=== PATIENT | female | born 1990 | race Two or more races ===

== ENCOUNTER 2018-06-13 18:08 | Emergency (ER) | END 2018-06-13 20:01 | disposition home or self-care (01) ==

== ENCOUNTER 2018-11-09 15:48 | Emergency (ER) | payer SELFPAY ==
[~2018-11-09 15:48] MED LIST: AZIT250T PO; CYCL10TA7 PO; FIORICET PO; HYDR-3498 PO; METO10TA92 PO; NAPR-985 PO
== END 2018-11-09 18:26 | disposition left against medical advice (07) ==
LOC: E/R 15:48
DX: Z53.21 Procedure and treatment not carried out due to patient leaving prior to being seen by health care provider (principal)

== ENCOUNTER 2019-03-23 10:40 | Emergency (ER) | payer OTHER ==
[~2019-03-23] VITALS: Ht 167.6 cm; Wt 67.0 kg
[2019-03-23 10:43] VITALS: BP 123/60; PULSE 83; RESP 19; Ht 167.6 cm; Wt 67.0 kg
[2019-03-23] MEDS ORDERED: AMOX500C2 PO (12:11)
[2019-03-23] MEDS ORDERED: IBUP-1542 PO (12:11)
--- NOTE | 2019-03-23 12:17 | ERD ---
ER Documentation Chief Complaint Chief Complaint Headache x 2 days worse today HPI Patient is a 29-year-old female, no past medical history, presents the ER for concerns of a frontal headache x2 days, worse today. Patient states she also has nasal congestion. She reports yellow accretions. She states she been erika ing Zyrtec for about a week now to helping with her symptoms. Patient states she has tenderness to her sinuses. Patient has no photophobia, phonophobia, nausea, vomiting, blurry vision, fevers, chills. Patient denies any recent travel. Patient has no neck pain or neck stiffness. Patient states she tried to take aspirin for pain however did not help. ROS All systems reviewed and are negative except as per history of present illness. Medications Home Meds Active Scripts Amoxicillin* (Amoxicillin*) 500 Mg Cap, 500 MG PO BID for 7 Days, CAP Prov:DEON MOULTON PA-C 03/23/19 Ibuprofen* (Motrin*) 600 Mg Tab, 600 MG PO Q6, #30 TAB Prov:DEON MOULTON PA-C 03/23/19 Metoclopramide* (Reglan*) 10 Mg Tablet, 10 MG PO Q12 PRN for HEADACHE, #10 TAB Prov:LIZBETH PRIETO MD 06/13/18 Acetamin/Butalbital/Caffeine* (Fioricet*) [id number] Tab, 1 TAB PO Q6H PRN for PAIN, #12 TAB Prov:LIZBETH PRIETO MD 06/13/18 Azithromycin* (Zithromax*) 250 Mg Tablet, 250 MG PO .NAFISA DIRECTED, #6 TAB TAKE 500 MG (2 TABS) THE FIRST DAY THEN 250 MG (1 TAB) DAYS 2-5 Prov:LIZBETH PRIETO MD 06/13/18 Cyclobenzaprine Hcl* (Cyclobenzaprine Hcl*) 10 Mg Tablet, 10 MG PO QHS, #20 TAB Prov:BOLA GENAO PA-C 08/04/16 Naproxen* (Naprosyn*) 500 Mg Tablet, 500 MG PO BID PRN for PAIN AND/OR INFLAMMATION, #30 TAB Prov:BOLA GENAO PA-C 08/04/16 Hydrocodone Bit-Acetaminophen* ([place]*) 5-325 Mg Tab, 1 TAB PO Q6 PRN for PAIN, #20 TAB Prov:NATALIIA UNDERWOOD 11/02/15 Allergies Allergies: Coded Allergies: No Known Allergy (Unverified , 06/13/18) PMhx/Soc History of Surgery: Yes (cholecystectomy) Anesthesia Reaction: No Hx Neurological Disorder: No Hx Respiratory Disorders: Yes (asthma) Hx Cardiac Disorders: No Hx Psychiatric Problems: No Hx Miscellaneous Medical Probl: No Hx Alcohol Use: No Hx Substance Use: No Hx Tobacco Use: No FmHx Family History: No diabetes Physical Exam Vitals Vital Signs Date Temp Pulse Resp B/P (MAP) Pulse Ox O2 O2 Flow FiO2 Time Delivery Rate 03/23/19 98.8 83 19 123/60 98 10:43 (81) Physical Exam GENERAL: Well-developed, well-nourished female. Appears in no acute distress. Speaking in full sentences. HEAD: Normocephalic, atraumatic. EYES: Pupils are equally reactive bilaterally. EOMs grossly intact. No conjunctival erythema. ENT: Bilateral frontal and maxillary sinuses are tender to palpation. Erythema noted to the turbinates. Moist mucous membranes. No uvula deviation. No kissing tonsils. NECK: Supple. No meningismus. Normal range of motion of the neck. LUNG: Clear to auscultation bilaterally. No rhonchi, wheezing, rales or coarse breath sounds. HEART: Regular rate and rhythm. No murmurs, rubs or gallops. EXTREMITIES: Equal pulses bilaterally. No peripheral clubbing, cyanosis or edema. No unilateral leg swelling. NEUROLOGIC: Alert and oriented x3, cooperative. Mood and affect appropriate to situation. Cranial nerves II through XII are grossly intact. Normal speech. Motor exam: 5/5 strength in upper and lower extremities. Sensory exam: Sensation intact to light touch on all four extremities. Cerebellar function exam: Rapid alternating movements intact. No dysmetria on [id number] and [id number]-[id number]-[id number] test. Steady gait. No pronator drift. SKIN: Normal color. Warm and dry. No rashes or lesions. Procedures/MDM MEDICAL DECISION MAKING: This is a 29-year-old female who presents the ER for concerns of a frontal headache with nasal congestion. Vital signs were reviewed. Patient was afebrile. Patient is not hypoxic. Patient denied any fevers, neck stiffness, jaw claudication, visual changes or LOC. Full neurological exam was normal. At this time the patient presentation is consistent with sinusitis. Low suspicion for deep space infection, abscess, vasculitis, intracranial hemorrhage, meningitis, encephalitis, CO poisoning, temporal arteritis, benign intracranial hypertension, intracranial mass, glaucoma, preeclampsia, migraine headache, cluster headache. Patient was nontoxic, [id number] prior to discharge. PRESCRIPTIONS: Ibuprofen, amoxicillin DISCHARGE: At this time, patient is stable for discharge and outpatient management. I have encouraged the patient to hydrate well. I have instructed the patient to follow- up with his/her primary care physician in 1-2 days. If symptoms persist, patient may need to see a specialist for further examinations and testing. I have instructed the patient to promptly return to the ER at any time for any new or worsening symptoms including increased increased pain, fever, nausea, vomiting, numbness, neck stiffness, visual changes, weakness or LOC. The patient and/or family expressed understanding of and agreement with this plan. All questions were answered. Home care instructions were provided. Disclaimer: Inadvertent spelling and grammatical errors are likely due to EHR/dictation software use and do not reflect on the overall quality of patient care. Also, please note that the electronic time recorded on this note does not necessarily reflect the actual time of the patient encounter. Departure Diagnosis: Primary Impression: Sinus headache Condition: Fair Patient Instructions: Sinus Headaches Referrals: [facility] YOU HAVE RECEIVED A MEDICAL SCREENING EXAM AND THE RESULTS INDICATE THAT YOU DO NOT HAVE A CONDITION THAT REQUIRES URGENT TREATMENT IN THE EMERGENCY DEPARTMENT. FURTHER EVALUATION AND TREATMENT OF YOUR CONDITION CAN WAIT UNTIL YOU ARE SEEN IN YOUR DOCTORS OFFICE WITHIN THE NEXT 1-2 DAYS. IT IS YOUR RESPONSIBILITY TO MAKE AN APPOINTMENT FOR FOLOW-UP CARE. IF YOU HAVE A PRIMARY DOCTOR --you should call your primary doctor and schedule an appointment IF YOU DO NOT HAVE A PRIMARY DOCTOR YOU CAN CALL OUR PHYSICIAN REFERRAL HOTLINE AT IF YOU CAN NOT AFFORD TO SEE A PHYSICIAN YOU CAN CHOSE FROM THE FOLLOWING [facility] [address] [place] [facility] [address] [facility]. [facility] [address] [facility] [address] [facility] [address] [facility]. [facility] [address] [facility]. [facility] YOU HAVE RECEIVED A MEDICAL SCREENING EXAM AND THE RESULTS INDICATE THAT YOU DO NOT HAVE A CONDITION THAT REQUIRES URGENT TREATMENT IN THE EMERGENCY DEPARTMENT. FURTHER EVALUATION AND TREATMENT OF YOUR CONDITION CAN WAIT UNTIL YOU ARE SEEN IN YOUR DOCTORS OFFICE WITHIN THE NEXT 1-2 DAYS. IT IS YOUR RESPONSIBILITY TO MAKE AN APPOINTMENT FOR FOLOW-UP CARE. IF YOU HAVE A PRIMARY DOCTOR --you should call your primary doctor and schedule and appointment IF YOU DO NOT HAVE A PRIMARY DOCTOR YOU CAN CALL OUR PHYSICIAN REFERRAL HOTLINE AT . IF YOU CAN NOT AFFORD TO SEE A PHYSICIAN YOU CAN CHOSE FROM THE FOLLOWING [facility] INSTITUTIONS: [facility] [address] [place], [place] [id number] [place] [address] [address] [place], [place] [id number] [place] [address] + [facility] [address] [place] [address] Additional Instructions: Llame al doctor MAANA y ashlyn bel MEAGAN PARA DENTRO DE 1-2 REYES.Dgale a la secretaria que nosotros le instruimos hacer esta meagan.Avise o llame si loera condicin se empeora antes de la meagan. Regresa aqui si peor o no mejor. DEON MOULTON PA-C Mar 23, 2019 12:17
== END 2019-03-23 12:31 | disposition home or self-care (01) ==
LOC: FTE 10:40
DX: R51 Headache (principal); J45.909 Unspecified asthma, uncomplicated
CPT/HCPCS: 99283

== ENCOUNTER 2019-06-12 22:51 | Emergency (ER) | payer SELFPAY ==
[~2019-06-12] VITALS: Ht 167.6 cm; Wt 68.4 kg
[~2019-06-12 22:51] MED LIST changes: +AMOX500C2 PO; +IBUP-1542 PO
[2019-06-12 22:53] VITALS: BP 123/58; PULSE 78; RESP 19; Ht 167.6 cm; Wt 68.4 kg
== END 2019-06-12 23:16 | disposition left against medical advice (07) ==
LOC: FTE 22:51
DX: Z53.21 Procedure and treatment not carried out due to patient leaving prior to being seen by health care provider (principal)